=== PATIENT | male | born 1950 | race Caucasian/White ===

== ENCOUNTER → 2016-08-24 | Outpatient (CLI) | payer OTHER ==
--- NOTE | 2016-08-24 09:31 | KCIC ---
CT CHEST WO CONTRAST dated 08/24/2016 9:00 AM Indication: Lung nodule follow-up Comparison: Exams dating back to April 04, 2015 Technique: Noncontrast CT imaging was performed of the chest, multiplanar reconstruction images submitted. One or more of the following individualized dose reduction techniques were utilized for this examination: 1. Automated exposure control 2. Adjustment of the mA and/or kV according to patient size 3. Use of iterative reconstruction technique Findings: 0.6 cm noncalcified lingular nodule axial image 153 series 2 is unchanged. Tiny left upper lobe nodule medially on axial image 90 series 2 of 2 0.3 cm is unchanged. Tiny 0.2 to 0.3 cm right upper lobe nodule axial image 46 is unchanged. 0.4 cm right middle lobe nodule axial images 06/09/2016 is unchanged. Subpleural 0.4 cm right middle lobe nodule axial image 142 is stable. There is no new infiltrate, pleural or pericardial effusion, pneumothorax. There is coronary calcification. Precarinal lymph node up to 1.4 cm short axis dimension is similar, a few other smaller mediastinal nodes as seen previously. Thoracic aortic caliber is within normal limits. There is again fullness/nodular appearance of the left adrenal gland is stable, density measurements suggestive of adenoma. Hypodense lesion of the right lobe of the liver has density measurements suggestive of a cyst. There is multilevel thoracic spondylosis. There is centrilobular emphysema with upper zone predominance. Mild dependent density in the right tracheal lumen is more likely due to mucus. IMPRESSION: 1. Small noncalcified pulmonary nodules are stable, largest 0.6 cm of the lingula. 2. There is coronary calcification. 3. There is stable mediastinal lymphadenopathy. 4. Enlarged and somewhat nodular appearing left adrenal gland is stable, likely underlying adenoma. Solid Nodules Size Nodule Type <6mm(<100mm3) 6-8mm (100-250mm3) >8mm(>250mm3) Multiple Low Risk No routine CT at 3-[address] at 3-6 months follow-up then consider CT then consider CT at 18-24 months at 18-24 months High Risk Optional [address] CT at 3-[address] at 3-6 months at 12 months then at 18-24 then at 18-24 months months Guidelines for Management of Incidental Pulmonary Nodules Detected on CT Images:? From the Fleischner [employer].?2017 Electronically signed by: Omi Lopez MD (08/24/2016 9:28 AM)
== END | disposition home or self-care (01) ==
LOC: KCIC CT 08:42
PROVIDERS: ATTEND Internal Medicine Pulmonary Disease
DX: R91.1 Solitary pulmonary nodule (principal)
CPT/HCPCS: 71250

== ENCOUNTER → 2017-08-23 | Outpatient (CLI) | payer OTHER | END | disposition home or self-care (01) | LOC: KCIC CT 12:51 | DX: I25.10 Atherosclerotic heart disease of native coronary artery without angina pectoris (principal); J43.8 Other emphysema; R91.8 Other nonspecific abnormal finding of lung field | CPT/HCPCS: 71250 ==

== ENCOUNTER → 2018-08-15 | Outpatient (CLI) | payer MEDICARE, OTHER ==
--- NOTE | 2018-08-15 11:13 | KCIC ---
CT CHEST WO CONTRAST Indication: Lung nodules. Smoker. Some shortness of breath. Exposure: One or more of the following individualized dose reduction techniques were utilized for this examination: 1. Automated exposure control 2. Adjustment of the mA and/or kV according to patient size 3. Use of iterative reconstruction technique. Technique: Standard imaging without intravenous contrast. Comparison: August 23, 2017. Mediastinal lymph nodes are stable in size and appearance as prior study. No new pathologic axillary lymph node enlargement is seen. Coronary artery calcification. No pleural effusion. No evidence of thyroid mass. No pericardial or pleural effusion. Lingular nodule measures 5 mm, series 6, image 151, stable. Mild fissural nodularity is again seen. No new dominant mass is identified. No infiltrate. Mild predominantly peripheral interstitial opacities are again identified. Trachea and mainstem bronchi appear patent. Scans to the upper abdomen are limited by technique and low density lesion in the liver is stable and measures cystic density. Thickening of the left adrenal with possible small lesion is again identified. Degenerative changes of the spine are again seen. IMPRESSION: 1. Stable pulmonary nodules. 2. Stable interstitial opacities or fibrosis. 3. Stable left adrenal and liver findings. Electronically signed by: Shade Kern MD (08/15/2018 11:10 AM) [facility]
== END | disposition home or self-care (01) ==
LOC: KCIC CT 09:12
PROVIDERS: ATTEND Internal Medicine Pulmonary Disease
DX: R91.8 Other nonspecific abnormal finding of lung field (principal); F17.210 Nicotine dependence, cigarettes, uncomplicated; K76.89 Other specified diseases of liver; I10 Essential (primary) hypertension
CPT/HCPCS: 71250

== ENCOUNTER → 2019-08-12 | Outpatient (CLI) | payer MEDICARE, OTHER ==
--- NOTE | 2019-08-12 13:36 | RAD ---
CT CHEST WO CONTRAST INDICATION: Reason: LUNG NODULE/SMOKER / Spl. Instructions: / History: . COMPARISON STUDY: 08/15/2018, 08/23/2017, 08/24/2016. TECHNIQUE: Unenhanced axial images were obtained through the lungs and upper abdomen. Coronal and sagittal multiplanar reconstructions were also obtained. RS compliance statement: One or more of the following individualized dose reduction techniques were utilized for this examination: 1. Automated exposure control 2. Adjustment of the mA and/or kV according to patient size 3. Use of iterative reconstruction technique FINDINGS: Lungs and Airways: No pulmonary mass or consolidation. Small bilateral pulmonary nodules demonstrate greater than two-year stability. Scattered bilateral subpleural reticulation. Normal central airways. Pleura: The pleural spaces are normal. Heart and Mediastinum: The visualized thyroid gland is normal in size and attenuation. No axillary or supraclavicular lymphadenopathy. No mediastinal, hilar or retrocrural lymphadenopathy. Normal cardiac size. No pericardial effusion. Coronary artery atherosclerotic disease. The great vessels of the thorax are normal. Abdomen: Stable hepatic cyst. Stable left adrenal adenoma. Bones and Soft Tissues: Degenerative changes of the spine. IMPRESSION: 1. Small bilateral pulmonary nodules demonstrate greater than two-year stability and are presumed benign. 2. No pulmonary mass or consolidation. No thoracic lymphadenopathy. 3. Scattered bilateral subpleural reticulation, likely senescent change or early fibrotic change. Electronically signed by: Omi Garduno MD (08/12/2019 1:34 PM) [facility]
== END | disposition home or self-care (01) ==
LOC: CT 09:47
PROVIDERS: ATTEND Internal Medicine Pulmonary Disease
DX: R91.8 Other nonspecific abnormal finding of lung field (principal); F17.200 Nicotine dependence, unspecified, uncomplicated
CPT/HCPCS: 71250

== ENCOUNTER → 2019-09-14 | Outpatient (CLI) | payer MEDICARE, OTHER ==
[~2019-09-14] MED LIST: FLUO40CA2 PO; GABA300C18 PO; LISI10TA2 PO; SIMV20TA18 PO
--- NOTE | 2019-09-14 15:33 | EKG ---
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
[2019-09-14 16:13] LABS: BASO # 0.1 x10^3/uL (0.0-0.2); BASO % 1 % (0-3); EOS # 0.1 x10^3/uL (0.0-0.7); EOS % 2 % (0-3); HEMATOCRIT 43.7 % (39.0-53.0); HEMOGLOBIN 15.3 g/dL (13.0-17.5); LYMPH # 2.4 x10^3/uL (1.0-4.8); LYMPH % 28 % (24-48); MEAN CORPUSCULAR HEMOGLOBIN 32 pg (25-35); MEAN CORPUSCULAR HGB CONC 35 g/dL (31-37); MEAN CORPUSCULAR VOLUME 92 fL (79-100); MONO # 0.7 x10^3/uL (0.0-1.1); MONO % 8 % (0-9); NEUT # 5.1 x10^3/uL (1.8-7.7); NEUT % 61 % (31-73); PLATELET COUNT 315 x10^3/uL (140-400); RED BLOOD COUNT 4.76 x10^6/uL (4.30-5.70); RED CELL DISTRIBUTION WIDTH 13.4 % (11.5-14.5); WHITE BLOOD COUNT 8.3 x10^3/uL (4.0-11.0)
[2019-09-14 18:31] LABS: ALBUMIN 3.6 g/dL (3.4-5.0); CALCIUM 8.5 mg/dL (8.5-10.1); CREATININE 1.3 mg/dL (0.7-1.3); GFR 55.2; POTASSIUM 4.5 mmol/L (3.5-5.1); TOTAL BILIRUBIN 0.2 mg/dL (0.2-1.0); TOTAL PROTEIN 7.2 g/dL (6.4-8.2)
== END ==
LOC: SURGPAT 14:29
PROVIDERS: ATTEND Neurological Surgery
DX: Z01.818 Encounter for other preprocedural examination (principal); Z11.59 Encounter for screening for other viral diseases; M48.062 Spinal stenosis, lumbar region with neurogenic claudication; I10 Essential (primary) hypertension
CPT/HCPCS: 36415; 80053; 85025; 87641; 93005; U0003

== ENCOUNTER → 2019-10-01 | Outpatient (CLI) | payer MEDICARE, OTHER ==
[2019-09-17 11:08] VITALS: BP 128/84
[~2019-10-01] MED LIST changes: +DOCU-109 PO; +HYDR-3164 PO; +METH-38 PO
== END | disposition home or self-care (01) ==
LOC: LAB 13:35
PROVIDERS: ATTEND Neurological Surgery
DX: Z11.59 Encounter for screening for other viral diseases (principal)
CPT/HCPCS: U0003-CS

== ENCOUNTER 2019-10-05 08:39 | Day surgery (SDC) | payer MEDICARE, OTHER ==
--- NOTE | 2019-10-02 15:31 | HP ---
ADMIT DATE: 10/05/2019 DATE OF SURGERY: 10/05/2019 HISTORY OF PRESENT ILLNESS: The patient is a pleasant 68-year-old, who I operated on at L4-L5 in 2005. He did well from that operation. In 2012, he underwent an ACDF by me as well and did well. He said that 6 weeks ago, he relatively abruptly developed significant low back pain along with back pain that could radiate down to his thighs and legs. The left side is much more involved than the right. Standing and walking increase his pain. He says if he stands for more than about 5 minutes, the pain becomes severe and he must sit. He rates his pain as an 8/10. Sitting helps the problem. He has been taking gabapentin without benefit. He has not noticed weakness in his legs or numbness in his legs. The principal problem is pain. PAST MEDICAL HISTORY: 1. Arthritis. 2. Emphysema. 3. Hypertension. PAST SURGICAL HISTORY: He underwent a lumbar surgery in 1980 and 1992 as well as 2005. He has had a right-sided wrist and elbow procedure in 2006, a left-sided wrist and elbow procedure in 2008. ACDF at C5-C6 and C6-C7 in March 2013. FAMILY HISTORY: Family history of heart disease. 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 He is . He reports never exercising. He denies a history of substance abuse. He is a current smoker. He has had 1 pack per day for 45 years. He reports that he drinks alcohol 1-2 times per year. ALLERGIES: No known drug allergies. CURRENT MEDICATIONS: 1. Prozac. 2. Simvastatin. 3. Breo Ellipta. REVIEW OF SYSTEMS: A 12-point review of systems was obtained and is noncontributory except for that mentioned above. NEUROSURGERY EXAMINATION: GENERAL APPEARANCE: Alert, pleasant, in no acute distress. HEAD: Normocephalic, atraumatic. SKIN: Warm and dry. Well-healed lumbar incisions. MUSCULOSKELETAL: Lumbar paraspinal muscle bulk is normal. Restricted range of motion of the lumbar spine. Mild to moderate tenderness of the lower lumbar spine with palpation. Normal range of motion of the lower extremities bilaterally. EXTREMITIES: No clubbing, cyanosis or edema. NEUROLOGIC: Alert and oriented x 3. Normal recent and remote memory. Strength 5/5 in bilateral lower extremities. Sensory is intact to light touch in bilateral lower extremities. Reflexes are present and symmetric in the lower extremities bilaterally. Negative straight leg raising bilaterally. Normal gait. IMAGING: I reviewed the lumbar MRI scan. There is a virtual obliteration of the central canal due to a posterior disc bulge as well as markedly hypertrophic facet and ligament. ASSESSMENT/ PLAN: The patient has severe lumbar spinal stenosis and I do not believe that epidural steroids or physical therapy would make any impact on this problem. My recommendation is that he undergo lumbar microsurgery with bilateral hemilaminotomies with decompression of the dura and nerve root at L3-L4. I did discuss this with him. He understands the surgery and the risks. He would like to go ahead. We will make the arrangements. JOSEPH SMITH MD DR: MARICRUZ/binu JOB#: [id number] / [id number] LANEY
[~2019-10-05] VITALS: Ht 185.4 cm; Wt 117.5 kg
[~2019-10-05 08:39] MED LIST changes: +BACITRACIN 50,000 UNIT in IV NORMAL SALINE 1000ML BAG 1,000 ML IRR ONE; +BUPIVACAINE-EPI 0.5%-1:200000 MPF 30 ML VIAL. ONE; -DOCU-109 PO; +GELATIN SPONGE SIZE 100. ONE; -HYDR-3164 PO; +HYDROmorphone 2 MG/ML VIAL IV PRN; +IV RINGERS,LACTATED 1000ML 1,000 ML IV SCH; +KETOROLAC 60 MG/2 ML VIAL. ONE; +LIDOCAINE 1% PF 2 ML VIAL. ID PRN; -METH-38 PO; +MORPHINE SULFATE 2 MG/ML VIAL. IV PRN; +ONDANSETRON PF 4 MG/2 ML VIAL. IV PRN; +PROCHLORPERAZINE 10 MG/2 ML VIAL. IV PRN; +THROMBIN TOPICAL 20,000 UNIT SPRAY.SYRN KIT TP ONE; +ceFAZolin 2GM PREMIX 2 GM/50 ML BAG IV ONE; +fentaNYL PF VIAL 100 MCG/2 ML VIAL IV PRN
[2019-10-05] MEDS ORDERED: PROPOFOL 10 MG/ML (20ML) VIAL. IV ONE ×2 (10:11→12:05)
[2019-10-05] MEDS ORDERED: PROPOFOL 50 ML IV ONE ×2 (10:11→13:33)
[2019-10-05] MEDS ORDERED: LIDOCAINE 2% PF 5 ML VIAL. ONE (10:11)
[2019-10-05] MEDS ORDERED: REMIFENTANIL 2 MG VIAL. IV ONE (10:12)
[2019-10-05] MEDS ORDERED: SUCCINYLCHOLINE 200 MG/10 ML VIAL. ONE (10:12)
[2019-10-05] MEDS ORDERED: ROCURONIUM 50 MG/5 ML VIAL. ONE (10:12)
[2019-10-05] MEDS ORDERED: fentaNYL PF VIAL 100 MCG/2 ML VIAL ONE (10:12)
[2019-10-05] MEDS ORDERED: SEVOFLURANE 61 TO 120 MINUTES. IH ONE (11:40)
[2019-10-05] MEDS ORDERED: DEXAMETHASONE SOD PHOS 20 MG/5 ML VIAL. ONE (11:40)
[2019-10-05] MEDS ORDERED: ONDANSETRON PF 4 MG/2 ML VIAL. ONE (11:41)
[2019-10-05] MEDS ORDERED: ePHEDrine PF IN SALINE 50 MG/10 ML SYRINGE. IV ONE (11:50)
[2019-10-05] MEDS ORDERED: PHENYLEPHRINE 10 MG/ML VIAL. ONE (12:22)
--- NOTE | 2019-10-05 14:04 | DISCH ---
DISCHARGE INSTRUCTIONS Condition on Discharge Condition on Discharge: Stable Activity After Discharge Activity Instructions for Disc: Resume previous activity, Activity as tolerated Other activity instructions: no driving for a week Bathing Instructions: Shower-keep dressing dry Lifting Instructions after Dis: No heavy lifting, No pulling or pushing, Do not lift >10 pounds Diet after Discharge Additional Diet Restrictions: resume home diet Wound Incision Care Wound/Incision Care: Ice to area for comfort Other wound/incision instructi: may remove dressing in 48 hours if dry then may shower, no soaking Contacting the after DC Call your doctor for: Concerns you may have Follow-Up Follow up with: Dr. Smith's nurse in 2 weeks [phone] JOSEPH SMITH MD Oct 05, 2019 14:04
--- NOTE | 2019-10-05 14:42 | OP ---
DATE OF SURGERY: 10/05/2019 PREOPERATIVE DIAGNOSES: Hypertrophic ligament and facet with severe spondylosis at L3-L4 with severe lumbar spinal stenosis. POSTOPERATIVE DIAGNOSES: Hypertrophic ligament and facet with severe spondylosis at L3-L4 with severe lumbar spinal stenosis. OPERATION PERFORMED: Bilateral hemilaminotomies with decompression of dura and nerve root, L3-L4. The operation was done with EMG monitoring, SSEP monitoring, fluoroscopy, microscopic dissection. SURGEON: Rome Smith M.D. OPERATIVE INDICATIONS: The patient is a pleasant 68-year-old man who developed intractable back and left greater than right lower extremity pain. On imaging studies, he had above-mentioned findings and I recommended lumbar microsurgery. He understood the risks, technique and expected postoperative course and wished to go ahead. DESCRIPTION OF PROCEDURE: Following general endotracheal anesthesia, the patient was positioned prone on the Mir table. Lumbar region prepped and draped in standard fashion. SELENA hose and AV impulse boots were applied for DVT prophylaxis. The microscope was draped. Fluoroscopy was draped and brought into field. Monitoring was established. Ancef 2 grams was given less than 1 hour prior to initiation of surgery. Using fluoroscopic guidance, a midline posterior incision was made directly over the interspace at L3-L4. I dissected down through skin and subcutaneous tissue. Beginning on the left side, placed a [place] microdisk retractor. I brought in the microscope and using the high speed air drill and microscopic technique burred down a generous hemilaminotomy, trimmed away the very thickened ligamentum flavum, exposed the dura and the exiting L4 root. As I worked, I was able to get this region very well decompressed and following obtaining excellent hemostasis, I switched to the right side and performed the identical procedure on the right. This was accomplished, I irrigated copiously with antibiotic solution. I removed the retractors and obtained excellent hemostasis. I closed the wound in layers with absorbable suture. The skin was closed with 4-0 subcuticular stitch. I did palpate the disc, which was very flat. No diskectomy was warranted. I was quite pleased with the surgery. ROME SMITH MD DR: MARICRUZ/binu JOB#: [id number] / [id number] MTDD
[2019-10-05] MEDS ORDERED: DOCU-109 PO (15:16)
[2019-10-05] MEDS ORDERED: METH-38 PO (15:16)
[2019-10-05] MEDS ORDERED: HYDR-3164 PO (15:16)
[2019-10-05] MEDS ORDERED: HYDROcodone/APAP 5/325MG 1 TAB TABLET PO ONE ×2 (15:30→16:00)
[2019-10-05 15:39] VITALS: BP 128/71
--- NOTE | 2019-10-07 17:07 | PATHOLOGY ---
[facility] Accession Number: [id number] . 01 Material submitted: . vertebral column - LUMBAR DECOMPRESSION . 01 Clinical history: . Lumbar stenosis with neurogenic claudication . 02 Diagnosis: Segments of fibrocartilaginous tissue and bone, lumbar decompression: - Degenerative changes of fibrocartilaginous tissue. (JPM:echo vascular technologist; 10/07/2019) R 10/07/2019 1542 Local . 02 Comment: There is no evidence of an acute inflammatory process or malignancy. (JPM:echo vascular technologist; 10/07/2019) . . 02 Electronically signed: . Richie Powell MD, Pathologist NPI- [id number] . 01 Gross description: . The specimen is received in formalin, labeled "Meño Mooney, lumbar decompression". Received is a moderate amount of pale lacey, gritty, fibrous tissue admixed with fragments of bone measuring 4.8 x 4.7 x 0.9 cm in aggregate dimensions. The specimen is submitted representatively in cassette A1, following decalcification. ([facility]; 10/06/2019) [facility] 10/06/2019 1634 Local . 02 Pathologist provided ICD-10: M51.36 . 02 CPT . 347006, [id number] Specimen Comment: A courtesy copy of this report has been sent to [phone], [phone] Specimen Comment: [id number] Specimen Comment: Report sent to / DR TAYLOR Performed at: 01 [facility] [address], [place] [id number] MD Rey Baires MD Phone: [phone] Performed at: 02 [facility] [id number] MD Richie Powell MD Phone: [phone]
== END 2019-10-05 16:40 | disposition home or self-care (01) ==
LOC: SURG 08:39
PROVIDERS: ATTEND Neurological Surgery
DX: M48.061 Spinal stenosis, lumbar region without neurogenic claudication (principal); M47.896 Other spondylosis, lumbar region; M19.90 Unspecified osteoarthritis, unspecified site; I10 Essential (primary) hypertension; J43.9 Emphysema, unspecified; Z79.899 Other long term (current) drug therapy
CPT/HCPCS: 63047; 88304; 88311; 97116; 97162; 97530; A7015; J0330; J0690; J1100; J1885; J2370; J2405; J2704; J3010; J7030; 76000

== ENCOUNTER → 2020-08-15 | Outpatient (CLI) | payer MEDICARE, OTHER ==
[~2020-08-15] MED LIST changes: -BACITRACIN 50,000 UNIT in IV NORMAL SALINE 1000ML BAG 1,000 ML IRR ONE; -BUPIVACAINE-EPI 0.5%-1:200000 MPF 30 ML VIAL. ONE; +DOCU-109 PO; -GELATIN SPONGE SIZE 100. ONE; +HYDR-3164 PO; -HYDROmorphone 2 MG/ML VIAL IV PRN; -IV RINGERS,LACTATED 1000ML 1,000 ML IV SCH; -KETOROLAC 60 MG/2 ML VIAL. ONE; -LIDOCAINE 1% PF 2 ML VIAL. ID PRN; +LISI10TA16 PO; -LISI10TA2 PO; +METH-38 PO; -MORPHINE SULFATE 2 MG/ML VIAL. IV PRN; -ONDANSETRON PF 4 MG/2 ML VIAL. IV PRN; -PROCHLORPERAZINE 10 MG/2 ML VIAL. IV PRN; -THROMBIN TOPICAL 20,000 UNIT SPRAY.SYRN KIT TP ONE; -ceFAZolin 2GM PREMIX 2 GM/50 ML BAG IV ONE; -fentaNYL PF VIAL 100 MCG/2 ML VIAL IV PRN
--- NOTE | 2020-08-15 08:41 | KCIC ---
EXAM: CT CHEST WITHOUT CONTRAST (LDCT LUNG CANCER SCREENING). HISTORY: Risk factors for pulmonary malignancy. Twelve-month recall. 50 year smoking history, lung no dule. TECHNIQUE: CT of the chest was performed without intravenous contrast using a low-dose lung screening protocol. Findings analysis is based on ACR Lung-RADS v1.1. *One or more of the following individual ized dose reduction techniques were utilized for this examination: 1. Automated exposure control. 2. Adjustment of the mA and/or kV according to patient size. 3. Use of iterative reconstruction technique. COMPARISON: 09/08/2019, 08/15/2018. FINDINGS: Nodules: No new or suspicious nodules are identified. Multiple small nodules are unchanged since 2019 and are likely benign. The largest inferiorly in the lingula on image 227 measures 6 x 4 mm. Others are seen in the right middle lobe on image 209, along the right minor fissure on image 172, and super iorly along the right minor fissure on image 158. Other findings: Images of the upper abdomen reveal no acute abnormality. Bone windows reveal no suspi cious lesions. Changes of cervical fusion are partially visualized. The thyroid gland is atrophic. There are no pathologically enlarged mediastinal or axillary lymph nod es. There is no pleural or pericardial effusion. The heart is not enlarged. There are atherosclerotic calcifications of the coronary arteries. There is mild to moderate centrilobular emphysema. Subpleural interstitial line thickening is associa wojciech with mild cystic change along the upper lobes. There is mild associated groundglass opacity. IMPRESSION/RECOMMENDATION: 1. ACR Lung-RADS category: 2S. 2. Continue annual screening with LDCT in 12 months. 3. Interstitial lung disease in a pattern suggesting nonspecific interstitial pneumonia, superimposed on mild to moderate centrilobular emphysema. Electronically signed by: Anthony Oropeza MD (08/15/2020 8:39 AM) [id number]
== END ==
LOC: KCIC CT 08:04
PROVIDERS: ATTEND Internal Medicine Pulmonary Disease
DX: Z12.2 Encounter for screening for malignant neoplasm of respiratory organs (principal); J84.9 Interstitial pulmonary disease, unspecified; F17.200 Nicotine dependence, unspecified, uncomplicated
CPT/HCPCS: 71271